=== PATIENT | male | born 1945 | race Caucasian/White ===

== ENCOUNTER 2021-05-16 16:31 | Emergency (ER) | payer OTHER ==
[~2021-05-16] VITALS: Ht 177.8 cm; Wt 102.1 kg
[2021-05-16] MEDS ORDERED: SINEMET 25-1001 EACH (16:48)
== END 2021-05-16 20:06 | disposition home or self-care (01) ==
LOC: ER 16:31
DX: B34.8 Other viral infections of unspecified site (principal)

== ENCOUNTER 2021-05-20 11:53 | Outpatient (CLI) | payer OTHER ==
[~2021-05-20 11:53] MED LIST: SINEMET 25-1001 EACH
== END 2021-05-20 13:20 | disposition home or self-care (01) ==
LOC: ASH CLINIC 11:53
PROVIDERS: ATTEND Emergency Medicine
DX: U07.1 COVID-19 (principal); Z23 Encounter for immunization

== ENCOUNTER 2024-01-04 11:01 | Emergency (ER) | payer OTHER ==
[~2024-01-04] VITALS: Ht 175.3 cm; Wt 93.0 kg
[~2024-01-04 11:01] MED LIST changes: +ACID REDUCER20 M1; +BENZONATATE150 MG PO; +NASAL MIST126 ML NASAL; +SINEMET 10-1001 EACH; +ZITHROMAX TRI-500 MG PO
== END 2024-01-04 14:41 | disposition home or self-care (01) ==
LOC: ER 11:03
DX: R53.81 Other malaise (principal); K64.9 Unspecified hemorrhoids